=== PATIENT | female | born 1945 | race Caucasian/White ===

== ENCOUNTER 2017-10-28 11:58 | Inpatient (IN) | payer OTHER ==
[~2017-10-28] VITALS: Ht 162.6 cm; Wt 61.2 kg
== END 2017-10-30 09:40 | disposition left against medical advice (07) | DRG 812 ==
LOC: ER 11:58 → MEDJ 21:18
PROC: 30233N1 Transfusion of Nonautologous Red Blood Cells into Peripheral Vein, Percutaneous Approach (ICD-10-PCS; principal; 2017-10-28)
PROC: 30233R1 Transfusion of Nonautologous Platelets into Peripheral Vein, Percutaneous Approach (ICD-10-PCS; 2017-10-28)
DX: D46.20 Refractory anemia with excess of blasts, unspecified (principal); D69.3 Immune thrombocytopenic purpura; D52.0 Dietary folate deficiency anemia

== ENCOUNTER 2018-04-21 13:03 | Inpatient (IN) | payer OTHER ==
[~2018-04-21] VITALS: Ht 162.6 cm; Wt 61.2 kg
[2018-04-21] MEDS ORDERED: PROMACTA50 MG PO (18:00)
[2018-04-24] MEDS ORDERED: VASOTEC10 MG NGT (08:52)
== END 2018-04-24 09:09 | disposition home or self-care (01) | DRG 813 ==
LOC: SEC-K 13:03 → MEDI 04-23 17:29
PROC: 30233R1 Transfusion of Nonautologous Platelets into Peripheral Vein, Percutaneous Approach (ICD-10-PCS; principal; 2018-04-21)
PROC: 30233N1 Transfusion of Nonautologous Red Blood Cells into Peripheral Vein, Percutaneous Approach (ICD-10-PCS; 2018-04-21)
PROC: BW40ZZZ Ultrasonography of Abdomen (ICD-10-PCS; 2018-04-23)
DX: D69.3 Immune thrombocytopenic purpura (principal); D46.A Refractory cytopenia with multilineage dysplasia; D46.Z Other myelodysplastic syndromes; D63.8 Anemia in other chronic diseases classified elsewhere; N95.0 Postmenopausal bleeding; I10 Essential (primary) hypertension